=== PATIENT | female | born 1955 | race Caucasian/White ===

== ENCOUNTER 2018-03-26 12:00 | Inpatient (IN) | payer OTHER ==
[~2018-03-26] VITALS: Ht 167.6 cm; Wt 72.1 kg
[2018-03-26 12:05] VITALS: BP 107/76
--- NOTE | 2018-03-26 12:20 | NUR ---
BIBA. PATIENT PRESENTS WITH ALOC REPORTED BY SISTER TO EMS. PATIENT ANSWERING QUESTIONS APPROPRIATLY AT THIS TIME. BILATERAL LOWER EXTREMITIES RED AND SWOLLEN WITH SMALL SKIN TEARS ON THE RIGHT LEG. PATIENT DENIES PAIN AT THIS TIME. SEVERE ABD DISTENTION NOTED REPORTED TO HAVE BEEN GETTING WORSE OVER THE LAST 2 MONTHS. SCLERAL YELLOWING NOTED.
--- NOTE | 2018-03-26 12:28 | NUR ---
DR CASTELLANOS AT BEDSIDE.
[2018-03-26] MEDS ORDERED: GABA-640 PO (12:30)
[2018-03-26] MEDS ORDERED: TRAM50TA1 PO (12:33)
[2018-03-26] MEDS ORDERED: FOLI1TAB89 PO (12:34)
[2018-03-26] MEDS ORDERED: MIRT15TA PO (12:37)
[2018-03-26] MEDS ORDERED: ASPI-1677 PO (12:38)
[2018-03-26] MEDS ORDERED: PROMETHAZINE 25 MG/ML VIAL IM ONE (12:50)
[2018-03-26] MEDS ORDERED: LACTULOSE 20 GM/30 ML UDC PO ONE (12:50)
--- NOTE | 2018-03-26 13:00 | NUR ---
RT AT BEDSIDE
--- NOTE | 2018-03-26 13:09 | NUR ---
TECH AT BEDSIDE PREFORMING EKG
[2018-03-26 13:39] LABS: BASOPHILS % (AUTO) 0.2 % (0.0-2.0); HEMATOCRIT 38.6 % (36-48); HEMOGLOBIN 12.6 g/dL (12.0-16.0); LYMPHOCYTES # (AUTO) 1.6 K/uL (2.5-16.5); LYMPHOCYTES % (AUTO) 6.7 % (20.5-51.1); MEAN CORPUSCULAR HEMOGLOBIN 33 pg (27-31); MEAN CORPUSCULAR HGB CONC 33 g/dL (33-37); MEAN CORPUSCULAR VOLUME 100.4 fL (80-94); MONOCYTES # (AUTO) 0.6 K/uL (0.8-1.0); MONOCYTES % (AUTO) 2.5 % (1.7-9.3); NEUTROPHILS % (AUTO) 90.6 % (42.2-75.2); PLATELET COUNT (AUTO) 302 K/uL (140-450); RED BLOOD CELL COUNT(AUTO) 3.85 MIL/uL (4.20-5.40); RED CELL DISTRIBUTION WIDTH 13.6 % (11.6-13.7); WHITE BLOOD COUNT (AUTO) 23.1 K/uL (4.8-10.8)
[2018-03-26 13:55] LABS: ANION GAP 8.5 (8-16); CARBON DIOXIDE 28.5 mmol/L (21-32); CREATININE 0.9 mg/dL (0.6-1.3)
[2018-03-26 14:01] LABS: ALBUMIN 1.8 g/dL (3.4-5.0); TOTAL BILIRUBIN 1.7 mg/dL (0.0-1.0)
[2018-03-26 14:03] LABS: ACETONE, SERUM NEGATIVE (NEGATIVE)
[2018-03-26 14:09] LABS: PROTHROMBIN TIME 12.2 secs (10.8-13.4)
--- NOTE | 2018-03-26 14:09 | NUR ---
U/S DELAYED DUE TO PATIENT CARE NEEDS.
[2018-03-26 14:12] LABS: AMYLASE 4 U/L (25-115); LIPASE 43 U/L (73-393); MAGNESIUM 1.7 mg/dL (1.8-2.4); URIC ACID 5.5 mg/dL (2.6-7.2)
[2018-03-26] MEDS ORDERED: NACL 0.9% 1,000 ML IV ONE (15:05)
[2018-03-26] MEDS ORDERED: cefTRIAXone 1,000 MG in DEXT 5% MINI-BAG PLUS 50 ML IV ONE (15:05)
[2018-03-26] MEDS ORDERED: LEVOFLOXACIN 500 MG/D5W PREMIX 100 ML IV ONE (15:05)
[2018-03-26] MEDS ORDERED: cefTRIAXone 1,000 MG VIAL ONE (15:14)
--- NOTE | 2018-03-26 16:00 | NUR ---
PT RESTING IN BED, FAMILY AT BEDSIDE. PT STATED NO DISCOMFORT AT HTIS MOMENT.
[2018-03-26] MEDS ORDERED: DOCUSATE SODIUM 100 MG GELCAP PO PRN (16:05)
[2018-03-26] MEDS ORDERED: ACETAMINOPHEN 325 MG TAB PO PRN (16:05)
[2018-03-26] MEDS ORDERED: ONDANSETRON 4 MG/2 ML VIAL IM/IVP PRN (16:05)
--- NOTE | 2018-03-26 17:25 | NUR ---
TRANSFERRED PT TO TELE 105 A, PT AWAKE, ALERT. RA, NO S/S OF RESPIRATORY DISTRESS NOTED. REPORT GIVEN TO IRVIN. FAMILY AND FRIEND WITH PT. PT IN STABLE CONDITION AT THIS MOMENT.
[2018-03-26] MEDS ORDERED: DEXTROSE 50% 50 ML SYR IVP PRN (17:35)
[2018-03-26] MEDS ORDERED: INSULIN LISPRO SLIDING SCALE 100 UNITS/ML VIAL SUBQ PRN (17:35)
[2018-03-26] MEDS ORDERED: SPIRONOLACTONE 25 MG TAB PO SCH (18:15)
[2018-03-26 18:17] LABS: CHOL/HDL RATIO 4.8 (1-4.5); FREE T4 (FREE THYROXINE) 1.17 ng/dL (0.76-1.46); MAGNESIUM 1.7 mg/dL (1.8-2.4); PHOSPHORUS 3.3 mg/dL (2.5-4.9); THYROID STIMULATING HORMONE 3.07 uIU/mL (0.34-3.74)
[2018-03-26] MEDS ORDERED: FUROSEMIDE 40 MG/4 ML VIAL IVP SCH (18:45)
[2018-03-26] MEDS: NACL 0.9% 1,000 ML IV SCH (18:59)
--- NOTE | 2018-03-26 19:30 | NUR ---
RECEIVED REPORT AT BEDSIDE FROM IRVIN KING DAYSHIFT NURSE, PT IN STABLE CONDITION.
[2018-03-26 20:00] VITALS: BP 105/71
--- NOTE | 2018-03-26 20:00 | NUR ---
PT IN LOW BED WITH FALLS PRECAUTIONS AND SEIZURE PRECAUTIONS IN PLACE, FAMILY AT BEDSIDE. V/S FOLLOWS T 99.5 P 106 R 18 B/P 105/74 02 94% WITH R/A. CALL SPRING IN REACH. PT ASSISTED WITH BEDPAN.
[2018-03-26 20:30] LABS: APPEARANCE,URINE CLOUDY (CLEAR); COLOR,URINE AMBER (YELLOW); UGLUCOSE NEGATIVE (NEGATIVE)
[2018-03-26 20:31] LABS: BILIRUBIN,URINE NEGATIVE (NEGATIVE); BLOOD, URINE NEGATIVE (NEGATIVE); LEUKOCYTE ESTERASE ,URINE NEGATIVE (NEGATIVE); NITRITE, URINE NEGATIVE (NEGATIVE)
[2018-03-26 20:32] LABS: BARBITURATE, URINE NEG. ng/ml (NEG <=200); BENZODIAZEPINE, URINE POS. ng/mL (NEG <=200); CANNABINOID, URINE POS. ng/mL (NEG <=50); COCAINE, URINE NEG. ng/mL (NEG <=300); OPIATE, URINE NEG. ng/mL (NEG <=2000); PHENCYCLIDINE SCREEN,URINE NEG. ng/mL (NEG <=25)
[2018-03-26 20:36] LABS: RBC,URINE 0-5 (RARE) /HPF (0-5); WBC,URINE 0-5 (RARE) /HPF (0-5)
[2018-03-26 20:37] LABS: URINE AMORPHOUS URATE 1+ /HPF (None Seen)
[2018-03-26] MEDS: LORazepam 1 MG TAB PO SCH (20:52)
[2018-03-26] MEDS: PIPER/TAZO 3.375GM/D5W PREMIX 50 ML IV SCH (21:00)
[2018-03-26] MEDS: BLOOD GLUCOSE MONITORING 1 DEV DEV FS SCH (21:00)
--- NOTE | 2018-03-26 21:00 | NUR ---
PT IN BED AOX3 SHE HAS HOB UP 35%. PT IS UNABLE TO AMBULATE AND HAS BEEN RECIEVEING ASSISTANCE WITH BEDPAN DUE TO RECEIVING LASIX IN ER PT HAD USED BED BRIONES X2. LUNG SOUNDS CLEAR AND BOWEL SOUNDS HYPOACTIVE. PT ABDOMEN IS FIRM AND DISTENDED. PT C/O 8/10 PAIN IN LEGS DUE TO NEUROPATHY FROM DM. PT GIVEN PRN MORPHINE 2MG IVP/PRN AND ATIVAN 1MG WHICH IS ORDERED AT THIS TIME. FINGERSTICK IS 115 NO COVERAGE NEEDED. PT ALSO RECEIVED ORDERED ZOSYN IVP ABX. BED IN LOW POSITION SIDE RAILS UP X2 AND CALL SPRING IN REACH, WILL MONITOR EFFECT OF PRN PAIN MEDS.
[2018-03-26] MEDS: MORPHINE SULFATE 4 MG/ML SYR IVP PRN (21:02)
[2018-03-26] MEDS ORDERED: PIPERACILLIN/TAZOBACTAM 3.375 GM VIAL IV ONE (21:54)
--- NOTE | 2018-03-27 | NUR ---
PT IN BED ASSISTED WITH BEDPAN URINATED X1 NO BM V/S FOLLOWS T 98.4 P 102 R 18 B/P 103/68 02 93. PT ASSISTED WITH BED BRIONES URINATED X1 BED LOW CALL SPRING IN REACH AND SIDE RAILS UP ALL FALLS AND SEIZURE PRECAUTIONS IN PLACE
--- NOTE | 2018-03-27 02:00 | NUR ---
PT IN BED ASLEEP WITH ALL PRECAUTIONS IN PLACE IV SITE INTACT AND FLUSHED PATENT.
--- NOTE | 2018-03-27 05:00 | NUR ---
T P IN BED F/S IS 99 NO COVERAGE NEEDED. V/S FOLLOWS T98.6 P 107 R 18 R B/P 118/81 02 95 WITH R/A.
[2018-03-27] MEDS ORDERED: PIPERACILLIN/TAZOBACTAM 3.375 GM VIAL IV ONE (05:54)
[2018-03-27] MEDS: PIPER/TAZO 3.375GM/D5W PREMIX 50 ML IV SCH (05:57)
[2018-03-27] MEDS: LORazepam 1 MG TAB PO SCH ×3 (05:58→20:47)
[2018-03-27 06:00] VITALS: BP 103/68
[2018-03-27] MEDS: BLOOD GLUCOSE MONITORING 1 DEV DEV FS SCH ×4 (06:08→20:50)
--- NOTE | 2018-03-27 07:20 | NUR ---
PT REPORT RECEIVED FROM ELECTRIC TRIPPER MACHINE OPERATOR NURSE AT BEDSIDE. PT IS ALERT AND AWAKE, NO S/S OF DISTRESS. PT IS ON ROOM AIR. SKIN IS INTACT. L AC 20 GAUGE IV SITE NOTED. PATENT AND INTACT. ABDOMEN IS ENLARGED DUE TO ASCITES, BLE EDEMATOUS AND WEEPING. PT IS NPO TODAY FOR UPCOMING PARACENTESIS PROCEDURE TODAY. CALL LIGHT WITHIN REACH, BED LOW. WILL CONTINUE TO MONITOR.
--- NOTE | 2018-03-27 07:30 | NUR ---
REPORT GIVEN TO EMANUEL AT AT BEDSIDE FOR CONTINUITY OF CARE, PT IN STABLE CONDITION.
[2018-03-27 07:33] LABS: BASOPHILS % (AUTO) 0.3 % (0.0-2.0); EOSINOPHILS % (AUTO) 0.1 % (0.0-4.0); HEMATOCRIT 36.6 % (36-48); HEMOGLOBIN 11.9 g/dL (12.0-16.0); LYMPHOCYTES # (AUTO) 1.9 K/uL (2.5-16.5); LYMPHOCYTES % (AUTO) 12.2 % (20.5-51.1); MEAN CORPUSCULAR HEMOGLOBIN 33 pg (27-31); MEAN CORPUSCULAR HGB CONC 33 g/dL (33-37); MONOCYTES # (AUTO) 0.3 K/uL (0.8-1.0); MONOCYTES % (AUTO) 2.1 % (1.7-9.3); NEUTROPHILS # (AUTO) 13.6 K/uL (1.8-7.7); NEUTROPHILS % (AUTO) 85.3 % (42.2-75.2); PLATELET COUNT (AUTO) 263 K/uL (140-450); RED BLOOD CELL COUNT(AUTO) 3.66 MIL/uL (4.20-5.40); RED CELL DISTRIBUTION WIDTH 13.9 % (11.6-13.7); WHITE BLOOD COUNT (AUTO) 15.9 K/uL (4.8-10.8)
[2018-03-27 07:57] LABS: MAGNESIUM 1.7 mg/dL (1.8-2.4); PHOSPHORUS 2.9 mg/dL (2.5-4.9)
[2018-03-27 08:00] VITALS: BP 109/69
[2018-03-27] MEDS: MAGNESIUM OXIDE 400 MG TAB PO SCH (09:00)
[2018-03-27] MEDS: MULTIVITAMIN 1 TAB PO SCH (09:01)
[2018-03-27] MEDS: LACTOBACILLUS RHAMNOSUS GG 1 EACH CAP PO SCH (09:01)
[2018-03-27] MEDS: chlordiazePOXIDE 25 MG CAP PO SCH ×3 (09:01→17:35)
[2018-03-27] MEDS: THIAMINE 100 MG TAB PO SCH (09:01)
[2018-03-27] MEDS: FOLIC ACID 1 MG TAB PO SCH (09:01)
[2018-03-27] MEDS: SPIRONOLACTONE 25 MG TAB PO SCH ×2 (09:02→17:35)
--- NOTE | 2018-03-27 09:10 | NUR ---
OBTAINED CONSENT FROM PT FOR PARACENTESIS.
[2018-03-27] MEDS ORDERED: LEVOFLOXACIN 750 MG/D5W PREMIX 150 ML IV SCH (09:30)
[2018-03-27] MEDS: NACL 0.9% 1,000 ML IV SCH (11:25)
[2018-03-27 12:00] VITALS: BP 107/66
[2018-03-27] MEDS ORDERED: FUROSEMIDE 40 MG/4 ML VIAL IVP SCH (13:00)
--- NOTE | 2018-03-27 14:04 | NUR ---
PATIENT HAS BEEN SCREENED AND CATEGORIZED HIGH NUTRITION RISK. PATIENT WILL BE SEEN WITHIN 1-2 DAYS OF ADMISSION. 03/27/18 03/28/18 RAMONE GREGG MBA, RD
[2018-03-27 15:40] LABS: ALBUMIN 1.7 g/dL (3.4-5.0); BILIRUBIN,DIRECT 0.8 mg/dL (0.0-0.3); TOTAL BILIRUBIN 1.4 mg/dL (0.0-1.0)
[2018-03-27] MEDS: HYDROcodone/APAP 7.5/325 MG 1 TAB PO PRN (15:57)
[2018-03-27 16:00] VITALS: BP 100/73
--- NOTE | 2018-03-27 17:10 | NUR ---
LYONS CATHETER INSERTED.
--- NOTE | 2018-03-27 18:00 | NUR ---
PARACENTESIS RESCHEDULED FOR TOMORROW. PT EATING DINNER AT THIS TIME. VISITORS AT BEDSIDE. NO S/S OF DISTRESS NOTED. WILL CONTINUE TO MONITOR.
--- NOTE | 2018-03-27 19:29 | NUR ---
RECEIVED REPORT FROM AM RN IN BED SLEEPING. WOKE UP EASILY. GIRLFRIEND INHERE WATCHING OVER HER. PT. NONE VERBAL AT THIS TIME. DX. OF SEPSIS, PNA. WITH ASCITES AND DUE FOR PARACENTESIS TOMORROW. HX. OF DEMENTIA. NOTED WITH CONFUSION RT PER FRIEND AT BEDSIDE SHE IS ASKING WEIRD QUESTIONS. BED ALARM ON AND CALL LIGHT WITH IN REACH. CARE PLANS FOR THE NIGHT DISCUSSED WITH THEM. NEEDS WILL BE ANTICIPATED AND MET. LYONS CATHETER IN PLACE DRAINING WITH YELLOW URINE. IVF SITE TO LAC#20 INTACT AND PATENT.
--- NOTE | 2018-03-27 19:30 | NUR ---
PT REPORT GIVEN TO CHIEF DRAFTER NURSE. PT IS ENDORSED IN STABLE CONDITION.
[2018-03-27 20:00] VITALS: BP 100/64
[2018-03-27] MEDS: LACTULOSE 20 GM/30 ML UDC PO SCH (20:46)
[2018-03-27] MEDS ORDERED: MIRTAZAPINE 15 MG TAB PO SCH (21:00)
[2018-03-27] MEDS: LORazepam 2 MG/ML VIAL IVP PRN (23:41)
--- NOTE | 2018-03-27 23:46 | NUR ---
PT. WITHOUT FAMILY FRIEND AT THIS TIME. PT. AWAKE AND RESTLESS. PT. HAS ANXIETY AND WANTS TO GET OUT OF BED. EXPLAINED THAT SHE CAN NOT GO RESTROOM TO URINATE RT SHE HAS LYONS CATHETER. SHE IS STRICT I AND O. PT. TRYING TO GET UP AND TRYING TO PULL OUT LYONS CATHETER. EXPLAINED THAT IT IS IN PLACE RT STRICT I AND O.
[2018-03-28 01:07] VITALS: BP 120/88
[2018-03-28] MEDS: MORPHINE SULFATE 4 MG/ML SYR IVP PRN (01:14)
--- NOTE | 2018-03-28 01:18 | NUR ---
PT. STATED THAT SHE IS IN PAIN. MEDICATED REQUESTED. CALLING NAMES AND SHOUTING ON TOP OF HER VOICE. PT. CLOSELY MONITORED RT CONFUSED. BED ALARM ON.
[2018-03-28] MEDS: LORazepam 2 MG/ML VIAL IVP PRN ×3 (04:02→16:36)
--- NOTE | 2018-03-28 04:05 | NUR ---
PT. WOKE UP AGAIN EARLIER . HAD A SHORT SLEEP. PT. WANTING TO JUMP OUT OF BED. VERY CONFUSED. ATIVAN IVP ADMINISTERED RT ANXIETY AND AGITATION.
[2018-03-28] MEDS: LORazepam 1 MG TAB PO SCH (04:10)
[2018-03-28 04:34] VITALS: BP 119/84
[2018-03-28] MEDS: BLOOD GLUCOSE MONITORING 1 DEV DEV FS SCH ×4 (05:53→21:00)
[2018-03-28 06:58] LABS: BASOPHILS # (AUTO) 0.2 K/uL (0.00-0.22); BASOPHILS % (AUTO) 1.9 % (0.0-2.0); EOSINOPHILS % (AUTO) 0.4 % (0.0-4.0); HEMATOCRIT 38.6 % (36-48); HEMOGLOBIN 12.8 g/dL (12.0-16.0); LYMPHOCYTES # (AUTO) 0.9 K/uL (2.5-16.5); LYMPHOCYTES % (AUTO) 11.3 % (20.5-51.1); MEAN CORPUSCULAR HEMOGLOBIN 33 pg (27-31); MEAN CORPUSCULAR HGB CONC 33 g/dL (33-37); MEAN CORPUSCULAR VOLUME 99.9 fL (80-94); MONOCYTES # (AUTO) 0.4 K/uL (0.8-1.0); MONOCYTES % (AUTO) 4.4 % (1.7-9.3); NEUTROPHILS # (AUTO) 6.8 K/uL (1.8-7.7); PLATELET COUNT (AUTO) 278 K/uL (140-450); RED BLOOD CELL COUNT(AUTO) 3.86 MIL/uL (4.20-5.40); RED CELL DISTRIBUTION WIDTH 13.8 % (11.6-13.7); WHITE BLOOD COUNT (AUTO) 8.3 K/uL (4.8-10.8)
[2018-03-28] MEDS: NACL 0.9% 1,000 ML IV SCH (07:00)
[2018-03-28 07:19] LABS: ALBUMIN 1.7 g/dL (3.4-5.0); ANION GAP 8.8 (8-16); CARBON DIOXIDE 28.4 mmol/L (21-32); CREATININE 0.9 mg/dL (0.6-1.3); MAGNESIUM 1.7 mg/dL (1.8-2.4); PHOSPHORUS 2.4 mg/dL (2.5-4.9); POTASSIUM 3.2 mmol/L (3.5-5.1); TOTAL BILIRUBIN 1.1 mg/dL (0.0-1.0)
--- NOTE | 2018-03-28 07:21 | NUR ---
ENDORSED TO THE NEXT RN FOR CONTINUITY OF CARE. PT. STILL AWAKE AT THIS TIME. NEEDS ANTICIPATED AND MET.
--- NOTE | 2018-03-28 07:22 | NUR ---
RECEIVED REPORT FROM TEXTILE COATING MACHINE OPERATOR NURSE. PATIENT LYING DOWN IN BED, NO DISTRESS NOTED. AAOX2, CALM, CONFUSED. LUNGS CTA ON ALL LOBES. ABDOMEN HAS LARGE ASCITES NOTED, SCHEDULED TO HAVE PARACENTESIS LATER TODAY. IV SITE INTACT, PATENT, AND INFUSING IVF PER MD ORDERS. HAS BLE PITTING EDEMA NOTED. RIGHT LE HAS MULTIPLE EXORIATIONS NOTED. WOUND CARE NURSE EVAL LATER TODAY. REVIEWED PLAN OF CARE WITH PATIENT. PATIENT VERBALIZED UNDERSTANDING. SAFETY MEASURES IN PLACE, CALL LIGHT WITHIN REACH. WILL CONTINUE TO MONITOR.
[2018-03-28 08:00] VITALS: BP 122/91
[2018-03-28] MEDS: THIAMINE 100 MG TAB PO SCH (09:00)
[2018-03-28] MEDS: chlordiazePOXIDE 25 MG CAP PO SCH ×3 (09:00→16:36)
[2018-03-28] MEDS: LACTULOSE 20 GM/30 ML UDC PO SCH ×2 (09:00→22:06)
[2018-03-28] MEDS: SPIRONOLACTONE 25 MG TAB PO SCH (09:00)
[2018-03-28] MEDS: LACTOBACILLUS RHAMNOSUS GG 1 EACH CAP PO SCH (09:00)
[2018-03-28] MEDS: MULTIVITAMIN 1 TAB PO SCH (09:00)
[2018-03-28] MEDS: FOLIC ACID 1 MG TAB PO SCH (09:00)
[2018-03-28] MEDS: FUROSEMIDE 40 MG/4 ML VIAL IVP SCH (09:00)
[2018-03-28] MEDS: MAGNESIUM OXIDE 400 MG TAB PO SCH (09:31)
--- NOTE | 2018-03-28 09:35 | NUR ---
PATIENT LYING DOWN IN BED, SISTER AT BEDSIDE. NO DISTRESS NOTED. CONTINUES TO BE CONFUSED. MAG OX AND IV ANTIBIOTICS DUE GIVEN. OTHER SCHEDULED MEDICATIONS NOT GIVEN PATIENT IS NPO. SAFETY MEASURES IN PLACE, WILL CONTINUE TO MONITOR.
[2018-03-28] MEDS ORDERED: SPIRONOLACTONE 50 MG TAB PO SCH (11:00)
--- NOTE | 2018-03-28 11:08 | NUR ---
WOUND CARE CONSULT PER DR. MALDONADO REQUEST FOR RLE WEEPING LEG. SISTER ADEBAYO AT BED SIDE, INFORMATION PROVIDED THAT PT. HAS DOG BITES TO PT. BLE ABOUT A WEEK AGO. SKIN ASSESSMENT DONE. RLE WEEPING SKIN WITH MULTIPLE OPEN LESIONS AND LARGEST TO LEFT LALA 2.5X0.5X0.3CM, WOUND BED YELLOW, DRY, ROSHNI-WOUND SKIN INTAKE BUT MOIST, NO ODOR, NO ERYTHEMA. RLE SKIN DRY, RIGHT GREAT TOE 0.5X0.5 BLACK ESCHAR AND MULTIPLE DRY SCABS TO 2ND, 3RD AND 5TH TOES. RECOMMENDATIONS: -CLEANSE RLE WITH NS, PAT DRY APPLY XEROFORM DRESSING AND WRAP WITH KERLIX ROLLS Q72 HOURS AND PRN IF SOILING -PAINT LEFT TOES WITH BETADINE SOLUTION QD AND LEAVE IT OPEN TO AIR DRY -TURN AND REPOSITION U2HAQIS AND KEEP BILATERAL HEELS ELEVATED -PLEASE FOLLOW UP PODIATRY SERVICE OUT PATIENT. -HOME HEALTH CARE FOR WOUND CARE Q72 HOURS ABOVE RECOMMENDATIONS DISCUSSED WITH PRIMARY RN.
[2018-03-28 12:00] VITALS: BP 123/89
[2018-03-28] MEDS: NACL 0.9% IRR 250 ML BOTTLE IR SCH (12:35)
[2018-03-28] MEDS: HYDROcodone/APAP 7.5/325 MG 1 TAB PO PRN (12:35)
--- NOTE | 2018-03-28 12:39 | NUR ---
PATIENT SITTING IN BED WITH LUNCH TRAY IN FRONT. NO DISTRESS NOTED. COMPLAINS OF PAIN, NORCO GIVEN PER MD ORDERS. SAFETY MEASURES IN PLACE, CALL LIGHT WITHIN REACH. WILL CONTINUE TO MONITOR.
--- NOTE | 2018-03-28 13:20 | NUR ---
PATIENT FEELING ANXIOUS, TRYING TO GET OUT OF BED AND PULLING ON LYONS CATHETER. ATIVAN GIVEN PER MD ORDERS. WILL CONTINUE TO MONITOR .
[2018-03-28] MEDS ORDERED: MAG SULF 2000 MG/WATER PREMIX 50 ML IV SCH (14:30)
--- NOTE | 2018-03-28 15:16 | NUR ---
RECEIVED ORDER FOR SNF FOR PT AND WOUND CARE. CALLED JERROD FROM [facility] AND FAXED ORDER AND H&P. NO PT EVAL DONE YET.
--- NOTE | 2018-03-28 15:49 | NUR ---
03/28/18 RD INITIAL ASSESSMENT COMPLETED PLEASE REFER TO NUTRITION ASSESSMENT UNDER CARE ACTIVITY FOR ESTIMATED NUTRITIONAL NEEDS. 1. RECOMMEND REGULAR DIET TOLERATED 2. DIETITIAN RECOMMENDS ENSURE MAX 3X/DAY 3. SUPPLEMENT WITH MULTI-VITAMIN 1X/DAY 3. RD TO FOLLOW-UP 3-5 DAYS, MODERATE RISK EMILIA FRANCO, ARIEL
[2018-03-28 16:00] VITALS: BP 103/71
--- NOTE | 2018-03-28 16:43 | NUR ---
PATIENT LYING IN BED TRYING TO PULL ON LYONS CATHETER, ATIVAN GIVEN PER MD ORDERS. OTHER SCHEDULED MEDICATIONS DUE GIVEN. SAFETY MEASURES IN PLACE, CALL LIGHT WITHIN REACH. WILL CONTINUE TO MONITOR.
[2018-03-28 17:10] LABS: GLUCOSE,BODY FLUID 93 mg/dL; LDH,BODY FLUID 23 U/L
[2018-03-28 17:25] LABS: APPEARANCE,SPUN,BODY FLUID CLEAR (CLEAR); APPEARANCE,UNSPUN,BODY FLUID CLEAR (CLEAR); COLOR,BODY FLUID LT YELLOW (LT YELLOW); RBC, BODY FLUID 4 /cu. mm.; SPECIMENTYPE,BODY FLUID ASCITES; TOTAL VOLUME,BODY FLUID 5650 mL; WBC, BODY FLUID 2 /cu. mm.
--- NOTE | 2018-03-28 19:30 | NUR ---
GAVE REPORT TO TRANSLITERATOR NURSE FOR CONTINUITY OF CARE. PATIENT IN STABLE CONDITION.
--- NOTE | 2018-03-28 19:33 | NUR ---
RECEIVED PT FROM DANIEL KING PT AOX1 ON TELEMETRY SR RT LE WITH MULTIPLES LACERATIONS , PT WITHASCITIS,HX CIRRHOSIS HL ON LEFT HAND PATENT FOLEYCATH DRAINING WELL YELLOW URINE INITIAL ASSESSMENT DONE
[2018-03-28 20:00] VITALS: BP 95/67
--- NOTE | 2018-03-28 21:30 | NUR ---
BLOOD SUGAR TEST 109 PT COOPERATIVE TO FOLLOW DR ORDERS REPOSITIONED Q2H ON TELMETRY SR
[2018-03-29] VITALS: BP 108/76
--- NOTE | 2018-03-29 01:00 | NUR ---
PT SLEEPING WELLL NOT STRESS NOTED , REPOSITIONED Q2H ON TELE SR LYONS CATH DRAINING WELL YELLOW URINE.
[2018-03-29 04:00] VITALS: BP 120/71
--- NOTE | 2018-03-29 04:00 | NUR ---
SPONGE BATH GIVEN LINEN CHANGED ON TELE SR ON BED ALARM NOT DISTRESS NOTED LYONS CATH DRAINING WELL YELLOW URINE
--- NOTE | 2018-03-29 06:30 | NUR ---
BLOOD SUGAR TEST 102
--- NOTE | 2018-03-29 06:33 | NUR ---
PT IS TAKEN TO CT ABD PELVIS WITH CONTRAST
[2018-03-29] MEDS: BLOOD GLUCOSE MONITORING 1 DEV DEV FS SCH ×4 (06:55→20:42)
[2018-03-29 07:07] LABS: BASOPHILS % (AUTO) 0.4 % (0.0-2.0); EOSINOPHILS # (AUTO) 0.1 K/uL (0-0.4); EOSINOPHILS % (AUTO) 0.8 % (0.0-4.0); HEMATOCRIT 35.1 % (36-48); HEMOGLOBIN 11.8 g/dL (12.0-16.0); LYMPHOCYTES # (AUTO) 1.3 K/uL (2.5-16.5); LYMPHOCYTES % (AUTO) 18.1 % (20.5-51.1); MEAN CORPUSCULAR HEMOGLOBIN 33 pg (27-31); MEAN CORPUSCULAR HGB CONC 34 g/dL (33-37); MEAN CORPUSCULAR VOLUME 98.9 fL (80-94); MONOCYTES # (AUTO) 0.5 K/uL (0.8-1.0); MONOCYTES % (AUTO) 6.8 % (1.7-9.3); NEUTROPHILS # (AUTO) 5.2 K/uL (1.8-7.7); NEUTROPHILS % (AUTO) 73.9 % (42.2-75.2); PLATELET COUNT (AUTO) 273 K/uL (140-450); RED BLOOD CELL COUNT(AUTO) 3.55 MIL/uL (4.20-5.40); RED CELL DISTRIBUTION WIDTH 13.5 % (11.6-13.7)
--- NOTE | 2018-03-29 07:15 | NUR ---
RECEIVED REPORT FROM CARVER AND CHECKERER SPECIALS NURSE. PATIENT TAKEN TO CT ABD/PELVIS BY RADIOLOGIST. WILL CONTINUE TO MONITOR WHEN PATIENT RETURNS FROM CT.
[2018-03-29 07:29] LABS: ANION GAP 7.9 (8-16); CARBON DIOXIDE 28.5 mmol/L (21-32); CREATININE 0.7 mg/dL (0.6-1.3); POTASSIUM 3.4 mmol/L (3.5-5.1)
[2018-03-29 08:00] VITALS: BP 121/77
--- NOTE | 2018-03-29 08:00 | NUR ---
PATIENT BACK FROM CT. NO DISTRESS NOTED. DENIES ANY PAIN. AAOX2, CALM, COOPERATIVE, CONFUSED. LUNGS CTA ON ALL LOBES. B/L LE PITTING EDEMA NOTED. RIGHT LE EXOCORIATION NOTED WITH DRESSING DRY AND INTACT. IV SITE INTACT. PATENT, AND INFUSING IVF PER MD ORDERS. ABDOMEN HAS ASCITES NOTED. REVIEWED PLAN OF CARE WITH PATIENT. PATIENT VERBALIZED UNDERSTANDING. REINFORCEMENT NEEDED. WILL CONTINUE TO MONITOR.
[2018-03-29] MEDS: FUROSEMIDE 40 MG/4 ML VIAL IVP SCH (08:45)
[2018-03-29] MEDS: LACTOBACILLUS RHAMNOSUS GG 1 EACH CAP PO SCH (08:46)
[2018-03-29] MEDS: LORazepam 2 MG/ML VIAL IVP PRN ×2 (08:46→20:36)
[2018-03-29] MEDS: SPIRONOLACTONE 50 MG TAB PO SCH (08:46)
[2018-03-29] MEDS: MAGNESIUM OXIDE 400 MG TAB PO SCH (08:46)
[2018-03-29] MEDS: THIAMINE 100 MG TAB PO SCH (08:46)
[2018-03-29] MEDS: LACTULOSE 20 GM/30 ML UDC PO SCH ×3 (08:46→17:00)
[2018-03-29] MEDS: MULTIVITAMIN 1 TAB PO SCH (08:46)
[2018-03-29] MEDS: chlordiazePOXIDE 25 MG CAP PO SCH ×3 (08:46→16:34)
[2018-03-29] MEDS: FOLIC ACID 1 MG TAB PO SCH (08:46)
--- NOTE | 2018-03-29 08:59 | NUR ---
PATIENT LYING DOWN IN BED CONFUSED AND ANXIOUS, TRYING TO PULL ON LYONS CATH. NO DISTRESS NOTED. ATIVAN GIVEN PER MD ORDERS. SCHEDULED MEDICATIONS DUE GIVEN. SAFETY MEASURES IN PLACE, CALL LIGHT WITHIN REACH. WILL CONTINUE TO MONITOR.
[2018-03-29 12:00] VITALS: BP 99/78
--- NOTE | 2018-03-29 12:21 | NUR ---
SPOKE WITH JERROD AT [facility]. FAXED ORDER FOR SNF INCLUDING THE PHYSICAL THERAPY NOTES.
[2018-03-29] MEDS: NACL 0.9% IRR 250 ML BOTTLE IR SCH (12:37)
[2018-03-29] MEDS: WOUND CARE PREPARATION 178 ML SPR TP SCH (12:37)
--- NOTE | 2018-03-29 12:40 | NUR ---
PATIENT LYING DOWN IN BED COMFORTABLY. NO DISTRESS NOTED. DENIES ANY PAIN. SCHEDULED MEDICATIONS DUE GIVEN. LEFT TOES CLEANSED WITH NS AND PAINTED WITH BETADINE PER ORDERS. RIGHT LE WOUNDS NOT CHANGED DUE TO Q72 PER MD ORDERS AND WOUND DRESSING WAS CHANGED YESTERDAY BY WOUND NURSE. WILL CONTINUE TO MONITOR.
--- NOTE | 2018-03-29 15:57 | NUR ---
RECEIVED A CALL FROM JERROD FROM [facility]. SHE SAID AT PRESENT HER HEADLINE WRITER IS NOT AUTHORIZING SNF FOR P.T. THE DIRECTOR WANTS TO SEE WHAT SHE DOES WITH P.T. TOMORROW. I INFORMED DR. GREER.
[2018-03-29 16:00] VITALS: BP 101/73
--- NOTE | 2018-03-29 16:38 | NUR ---
PATIENT SITTING IN BED TALKING WITH FRIENDS AT BEDSIDE. NO DISTRESS NOTED. DENIES ANY PAIN. SCHEDULED MEDICATIONS DUE GIVEN. SAFETY MEASURES IN PLACE, CALL LIGHT WITHIN REACH. WILL CONTINUE TO MONITOR.
--- NOTE | 2018-03-29 17:36 | NUR ---
LACTULOSE AT 1700 NOT GIVEN BECAUSE A DOSE WAS GIVEN AT 1500 PER MD ORDERS. WILL CONTINUE TO MONITOR.
--- NOTE | 2018-03-29 19:35 | NUR ---
GAVE REPORT TO TRIAL MGR NURSE FOR CONTINUITY OF CARE. PATIENT IN STABLE CONDITION.
--- NOTE | 2018-03-29 19:36 | NUR ---
RECEIVED PT FROM DANIEL KING PT IS AAOX1 ON BED REST HL ON LEFT ARM ON TELE ST LYONS CATH DRAINING WELL YELLOW URINE, ASCITES CALL LIGHT WITHIN REACH INITIAL ASSESSMENT DONE
[2018-03-29 20:00] VITALS: BP 104/73
[2018-03-29] MEDS ORDERED: ECOTRIN 81 MG TABEC PO SCH (21:00)
[2018-03-29] MEDS ORDERED: MIRTAZAPINE 15 MG TAB PO SCH (21:00)
[2018-03-30] VITALS: BP 103/68
--- NOTE | 2018-03-30 | NUR ---
PT REPOSITIONED NOT DISTRESS NOTED ON TELMETRY ST
[2018-03-30 04:00] VITALS: BP 102/75
--- NOTE | 2018-03-30 04:00 | NUR ---
SPONGE BATH GIVEN LINEN CHANGED A BIG BM ON TELE ST
--- NOTE | 2018-03-30 05:49 | NUR ---
PT PULL OUT LYONS CATH DR SAENZ WAS NOTIFY
[2018-03-30 06:57] LABS: BASOPHILS # (AUTO) 0.2 K/uL (0.00-0.22); BASOPHILS % (AUTO) 2.6 % (0.0-2.0); EOSINOPHILS # (AUTO) 0.1 K/uL (0-0.4); EOSINOPHILS % (AUTO) 1.1 % (0.0-4.0); HEMATOCRIT 35.7 % (36-48); HEMOGLOBIN 11.9 g/dL (12.0-16.0); LYMPHOCYTES % (AUTO) 30.4 % (20.5-51.1); MEAN CORPUSCULAR HEMOGLOBIN 33 pg (27-31); MEAN CORPUSCULAR HGB CONC 33 g/dL (33-37); MEAN CORPUSCULAR VOLUME 99.3 fL (80-94); MONOCYTES # (AUTO) 0.4 K/uL (0.8-1.0); MONOCYTES % (AUTO) 5.8 % (1.7-9.3); NEUTROPHILS % (AUTO) 60.1 % (42.2-75.2); PLATELET COUNT (AUTO) 274 K/uL (140-450); RED CELL DISTRIBUTION WIDTH 13.7 % (11.6-13.7); WHITE BLOOD COUNT (AUTO) 6.6 K/uL (4.8-10.8)
[2018-03-30 06:58] LABS: ANION GAP 7.5 (8-16); CARBON DIOXIDE 29.8 mmol/L (21-32); CREATININE 0.8 mg/dL (0.6-1.3); POTASSIUM 3.3 mmol/L (3.5-5.1)
[2018-03-30] MEDS ORDERED: traMADol 50 MG TAB PO PRN (07:00)
[2018-03-30] MEDS: BLOOD GLUCOSE MONITORING 1 DEV DEV FS SCH ×4 (07:06→21:00)
--- NOTE | 2018-03-30 07:06 | NUR ---
BLOOD SUGAR TEST 114 NOT COVERAGE
[2018-03-30] MEDS ORDERED: MIRT15TA PO (07:27)
--- NOTE | 2018-03-30 07:30 | NUR ---
RECEIVED PATIENT FROM ESTABLISHMENT GUIDE BY BEDSIDE. PATIENT IS AOX2. PATIENT IS CONFUSED AND KEEPS ASKING TO GO HOME. PATIENT IS ON ROOM AIR; PATIENT IS CALM AND HAS NO COMPLAINT OF DISTRESS OR PAIN AT THIS TIME. PATIENT'S BED IS AT THE LOWEST POSITION WITH THE CALL LIGHT WITHIN REACH.
[2018-03-30 08:00] VITALS: BP 133/82
[2018-03-30] MEDS ORDERED: FURO-570 PO ×2 (08:00→11:08)
[2018-03-30] MEDS ORDERED: SPIR50TA PO (08:01)
--- NOTE | 2018-03-30 08:18 | NUR ---
PATIENT GOT A SKIN TEAR WHEN SHE STUCK HER FINGER BETWEEN THE LEFT BED RAIL AND THE FOOD TRAY. SHE DENIES ANY PAIN. PUT BANDAID ON LEFT RING FINGER
[2018-03-30] MEDS ORDERED: ECOTRIN 81 MG TABEC PO SCH (09:00)
[2018-03-30] MEDS ORDERED: NON-FORMULARY ITEM (Folic Acid 1 MG) PO SCH (09:00)
[2018-03-30] MEDS: ECOTRIN 81 MG TABEC PO SCH (09:00)
[2018-03-30] MEDS ORDERED: LACT10CA1 PO (09:11)
[2018-03-30] MEDS ORDERED: LEVO750T2 PO (09:12)
[2018-03-30] MEDS ORDERED: POTA25TE38 PO ×2 (09:22→10:59)
--- NOTE | 2018-03-30 10:05 | NUR ---
DR. ELISE IS BY THE PATIENT'S BEDSIDE. PATIENT'S SISTER ADEBAYO PLUNKETT IS ALSO PRESENT.
[2018-03-30] MEDS: GABAPENTIN 100 MG CAP PO SCH ×3 (10:06→17:53)
--- NOTE | 2018-03-30 10:12 | NUR ---
SCHEDULED ASPIRIN 81MG HOLD PER DR. ELISE DUE TO BLEEDING.
[2018-03-30] MEDS: FUROSEMIDE 40 MG/4 ML VIAL IVP SCH (10:15)
[2018-03-30] MEDS: FOLIC ACID 1 MG TAB PO SCH (10:16)
[2018-03-30] MEDS: SPIRONOLACTONE 50 MG TAB PO SCH (10:16)
[2018-03-30] MEDS: MAGNESIUM OXIDE 400 MG TAB PO SCH (10:16)
[2018-03-30] MEDS: MULTIVITAMIN 1 TAB PO SCH (10:16)
[2018-03-30] MEDS: LACTOBACILLUS RHAMNOSUS GG 1 EACH CAP PO SCH (10:16)
[2018-03-30] MEDS: LACTULOSE 20 GM/30 ML UDC PO SCH ×3 (10:17→17:53)
[2018-03-30] MEDS: THIAMINE 100 MG TAB PO SCH (10:17)
[2018-03-30] MEDS: chlordiazePOXIDE 25 MG CAP PO SCH ×3 (10:17→17:53)
--- NOTE | 2018-03-30 10:34 | NUR ---
ARMANI NOTE RECEIVED ORDER FOR HOME HEALTH. FAXED ORDER FOR HOME HEALTH TO [facility] [phone]. PER [facility] ARMANI ELDER, HER COORDINATOR DERIK AARON# [phone] WILL ARRANGE WHICH HOME HEALTH AGENCY IS GOING TO SEE PATIENT AND WILL CALL THE HOSPITAL ONCE IT HAS BEEN ARRANGED.
[2018-03-30 12:00] VITALS: BP 115/79
[2018-03-30 12:48] LABS: PROTHROMBIN TIME 11.2 secs (10.8-13.4)
--- NOTE | 2018-03-30 12:58 | NUR ---
CM NOTE PER [facility] COORDINATOR DERIK # [phone], PATIENT HAS BEEN ARRANGED WITH [facility]# [phone]. SPOKE WITH PATIENT'S SISTER ADEBAYO CHILD WHO STATED THAT HER SISTER LIVES ALONE WITH A HOUSE HELPER WHO COMES THREE TIMES A WEEK TO HELP CLEAN THE HOUSE AND TAKE CARE OF THE PETS. PER ADEBAYO, SHE IS FROM [place] AND AND THAT SHE CAN'T TAKE CARE OF HER SISTER. SHE EXPRESSED HER CONCERN THAT IT MIGHT NOT BE SAFE FOR HER SISTER TO GO BACK TO HER HOME. SHE ALSO STATED THAT SHE HAS POWER OF BUCK SWAMPER AND SHE HAS GIVEN THE NURSE A COPY TO BE PLACED IN PATIENT'S CHART. ADEBAYO REQUESTED TO LOOK FOR AN ASSISTED LIVING FACILITY FOR THE PATIENT AND STATED THAT THE PATIENT HAS MONEY TO PAY FOR IT. CM DIRECTOR LIZZY INSTRUCTED ME TO REACH OUT TO [facility], A FREE PLACEMENT AND REFERRAL SERVICE FOR [facility] WHO ASSISTS WITH PERSONAL CARE PLANNING FOR SENIORS. ATTEMPTED TO CALL [facility] # [phone] AND LEFT VM. NO CALL BACK AT THIS TIME. DR. GREER AND CARLOS RN AWARE.
[2018-03-30] MEDS: NACL 0.9% IRR 250 ML BOTTLE IR SCH (13:00)
[2018-03-30] MEDS: WOUND CARE PREPARATION 178 ML SPR TP SCH (13:00)
--- NOTE | 2018-03-30 13:41 | NUR ---
CM NOTE RECEIVED CALL FROM EDWARDO OF [facility] # [phone] WHO REQUESTED PATIENT'S FACESHEET, H&P, MEDICATION LIST BE FAXED TO [facility] [phone]. FAXED INFORMATION. PER EDWARDO, SHE WILL CALL PATIENT'S SISTER ADEBAYO TODAY AND HAVE SOMEONE COME TO THE HOSPITAL TO SEE PATIENT. DR. GREER AND CARLOS KING AWARE.
--- NOTE | 2018-03-30 15:13 | NUR ---
CM NOTE RECEIVED CALL FROM EDWARDO OF [facility] WHO STATED THAT SHE HAD SPOKEN WITH PATIENT'S SISTER. SHE ALSO STATED THAT SHE HAS SPOKEN WITH PATIENT'S GROUND SCHOOL INSTRUCTOR AND DUCK BILL OPERATOR WHO SAID THAT THE POWER OF SYSTEM DEVELOPMENT MANAGER ONLY GETS ACTIVATED WHEN [address] GREER MADE AWARE. PER DR. GREER, SHE HAS SPOKEN WITH PATIENT AND THE PATIENT SAID SHE WANTS TO GO TO HER HOME AND NOT TO AN ASSISTED LIVING FACILITY. DR. GREER SAID SHE WILL DISCHARGE PATIENT HOME WITH HOME HEALTH. SPOKE WITH KORI OF [facility] TO INFORM HER THAT PATIENT IS BEING DISCHARGED TODAY. SHE SAID THAT THEY HAVE A NURSE SCHEDULED TO SEE PATIENT ONCE DISCHARGED. CHARGE NURSE CARLOS GARDNER RN AND PATIENT'S SISTER ADEBAYO PLUNKETT MADE AWARE.
[2018-03-30 15:19] LABS: FOLIC ACID 8.5 ng/mL (>3.0)
[2018-03-30 16:00] VITALS: BP 106/79
[2018-03-30] MEDS ORDERED: ASPI-1677 PO (16:09)
--- NOTE | 2018-03-30 17:45 | NUR ---
SPOKE TO DR CONTRERAS AND INFORMED HER THAT PATIENT IS UNABLE TO GET TRANSPORT AND NEEDS TOTAL ASSISTANCE TO GET INSIDE HER HOUSE BUT IS UNABLE TO GET SOMEONE TO HELP HER. PER , OK TO PUT DISCHARGE ON HOLD
[2018-03-30] MEDS: LORazepam 0.5 MG TAB PO PRN (18:15)
--- NOTE | 2018-03-30 19:39 | NUR ---
ENDORSED PATIENT TO THE IRONWORKER APPRENTICE RN BY HER BEDSIDE. PATIENT IS IN STABLE CONDITION.
--- NOTE | 2018-03-30 19:40 | NUR ---
RECEIVED PATIENT FROM AM SHIFT BY BEDSIDE. PATIENT IS SLEEPING AT THIS TIME GIVEN BY PREVIOUS SHIFT ANTIANXIETY MEDS. NO EPISODES OF AGITATION AT THIS TIME. PATIENT IS ON ROOM AIR; PATIENT'S BED IS AT THE LOWEST POSITION WITH THE CALL LIGHT WITHIN REACH. WILL CONTINUE TO MONITOR
--- NOTE | 2018-03-30 20:00 | NUR ---
PT SLEEPING, CALM AT THIS TIME. NO PAIN AND DISCOMFORT AT THIS TIME. WILL CONTINUE TO MONITOR
[2018-03-30] MEDS ORDERED: MIRTAZAPINE 15 MG TAB PO SCH (21:00)
--- NOTE | 2018-03-30 21:00 | NUR ---
CALLED ABOUT D/C ORDER RE: HOLD ON 03/30/18. PER WILL DISCHARGE NICKY 03/31/18 SOON ABLE TO LOOK FOR PLACEMENT.
[2018-03-31] MEDS: LORazepam 0.5 MG TAB PO PRN (02:13)
--- NOTE | 2018-03-31 02:15 | NUR ---
PT AWAKE,ALERT CONFUSED AND ABLE TO DEFECATE 2X. STOOL WATERY, BROWNISH & MODERATE AMOUNT.PT HAD POST ANTIBIOTIC TREATMENT.
[2018-03-31 04:00] VITALS: BP 116/78
--- NOTE | 2018-03-31 07:01 | NUR ---
PT WAS SEEN BY INFORMED HER TO BE DISCHARGE TODAY. AND WILL ARRANGE FOR TRANSPORT HOME
--- NOTE | 2018-03-31 07:20 | NUR ---
ENDORSED TO AM SHIFT NURSE. PT IN STABLE CONDITION
--- NOTE | 2018-03-31 07:21 | NUR ---
RECEIVED BEDSIDE REPORT FROM PM SHIFT NURSE NOEMI. PT IN BED, VERBALLY RESPONSIVE, NO C/O PAIN OR DISCOMFORT. CALL LIGHT WITHIN REACH.
[2018-03-31] MEDS: BLOOD GLUCOSE MONITORING 1 DEV DEV FS SCH ×3 (07:47→16:38)
[2018-03-31 08:00] VITALS: BP 109/79
[2018-03-31 08:14] LABS: HEPATITIS A ANTIBODY IGM Negative (Negative); HEPATITIS B CORE AB TOTAL Negative (Negative); HEPATITIS B SURFACE ANTIBODY Non Reactive (.); HEPATITIS B SURFACE ANTIGEN Negative (Negative)
[2018-03-31] MEDS: FUROSEMIDE 40 MG/4 ML VIAL IVP SCH (08:41)
[2018-03-31] MEDS: GABAPENTIN 100 MG CAP PO SCH ×2 (08:41→15:19)
[2018-03-31] MEDS: THIAMINE 100 MG TAB PO SCH (08:42)
[2018-03-31] MEDS: MAGNESIUM OXIDE 400 MG TAB PO SCH (08:42)
[2018-03-31] MEDS: chlordiazePOXIDE 25 MG CAP PO SCH ×2 (08:42→15:19)
[2018-03-31] MEDS: FOLIC ACID 1 MG TAB PO SCH (08:42)
[2018-03-31] MEDS: ECOTRIN 81 MG TABEC PO SCH (08:42)
[2018-03-31] MEDS: SPIRONOLACTONE 50 MG TAB PO SCH (08:42)
[2018-03-31] MEDS: LACTOBACILLUS RHAMNOSUS GG 1 EACH CAP PO SCH (08:43)
[2018-03-31] MEDS: LACTULOSE 20 GM/30 ML UDC PO SCH ×2 (08:43→13:00)
[2018-03-31] MEDS: MULTIVITAMIN 1 TAB PO SCH (08:43)
[2018-03-31] MEDS ORDERED: LEVOFLOXACIN 750 MG TAB PO SCH (09:00)
--- NOTE | 2018-03-31 09:00 | NUR ---
PT IN BED AWAKE, DENIES ANY PAIN OR DISCOMFORT. PERICARE PROVIDED. PT REPOSITIONED. TIFFANI CARE WELL. CALL LIGHT WITHIN REACH.
--- NOTE | 2018-03-31 09:03 | NUR ---
LATE ENTRY FOR 03/30/18 1530 SPOKE WITH PATIENTS SISTER ADEBAYO REGARDING HOME DISCHARGE WITH HH. PER ADEBAYO SHE IS UNABLE TO ASSIST PATIENT WITH HER CARE AND WILL NOT PICK PT UP SHE DOESN'T THINK PATIENT SHOULD BE LIVING ALONE. STATED THAT SHE HAS HAD A STRAINED RELATIONSHIP WITH HER SISTER DUE TO PATIENTS ALCOHOL ABUSE AND THAT PT BECOMES VERBALLY ABUSE. STATED THAT PT DOES HAVE AN BOWLING BALL FINISHER HER FINANCIER AND THAT PT REFUSES TO GO TO SNF OR ASSISTED LIVING AND AT THIS TIME ONLY PATIENT CAN ACCESS THE FUNDS AND THAT ONLY WHEN PATIENT IS DEEMED INCOMPETENT CAN SOMEONE OTHER THAN PATIENT UTILIZE THE FUNDS FOR HER CARE. I INFORMED ADEBAYO THAT I WOULD SPEAK TO THE PATIENT ABOUT THE SITUATION. 1615 MET WITH PATIENT AT BEDSIDE AND DISCUSSED WITH PATIENT THAT DUE TO HER DECREASED LEVEL OF FUNCTION IT WOULD BE ADVISABLE TO CONSIDER AN ASSISTED LIVING FACILITY. PT ADAMANTLY REFUSED AND STATED THAT SHE PLANS TO GO HOME. ASKED PT WHAT HER PLAN IS AND SHE STATED THAT SHE WOULD TAKE A TAXI. DISCUSSED WITH PT THAT SINCE SHE NEEDS TO UTILIZE A WALKER HOW SHE WOULD GET INTO HER HOME SAFELY AND SHE STATED "I'LL ASK THE HYDROGRAPHIC SURVEYOR TO HELP ME UP THE DRIVEWAY". ASKED HER WHAT HER PLAN IS IF THE HYDROGRAPHIC SURVEYOR WILL NOT ASSIST HER AND SHE SAID "I'LL GET ONE OF MY NEIGHBORS TO HELP". INFORMED HER THAT THERE ARE OTHER FORMS OF TRANSPORT AND PT SAID SHE WOULD BE WILLING TO UTILIZE A W/C TRANSPORT VAN. PROVIDED HER WITH INFORMATION ON [facility] AND PT DID SPEAK WITH DISPATCH BY PHONE AND WAS INFORMED THAT SHE WOULD NEED TO PAY UPFRONT. PT BECAME UPSET AND INSISTED THAT THE HYDROGRAPHIC SURVEYOR COULD STOP BY AN DANA AND SHE WOULD OBTAIN FAM BUT [facility] WOULD NOT ACCOMMODATE PATIENTS REQUEST. ADVISED PATIENT THAT IT WOULD BE SAFER TO WAIT UNTIL TOMORROW TO SET UP AN ARRANGEMENT WITH HER FRIEND (PER PT SHE HAS LEFT A MESSAGE WITH HER FRIEND THAT SHE NEEDS TRANSPORT) BUT PT WAS INSISTING ON LEAVING TONIGHT. ASSIGNED NURSE CARLOS AND CHARGE NURSE JJ AWARE OF SITUATION AND THAT PT SAID SHE IS WAITING FOR HER FRIEND TO CALL BACK.
--- NOTE | 2018-03-31 11:00 | NUR ---
SPOKE WITH DIONE FROM [place], ETA FOR [facility] TRANSPORT IS AT 2PM TODAY. MIRIAM NURSE ASSIGNED MADE AWARE.
--- NOTE | 2018-03-31 11:15 | NUR ---
WRITTEN & VERBAL DISCHARGE INSTRUCTIONS PROVIDED TO PT. PT VERBALIZED UNDERSTANDING. PT AWARE OF PENDING TRANSPORT FOR VALIDATION CONSULTANT. CALL LIGHT WITHIN REACH.
--- NOTE | 2018-03-31 11:34 | NUR ---
1100 MET WITH PATIENT AT BEDSIDE AND ASKED IF SHE HAD RECONSIDERED ABOUT ASSISTED LIVING AND PATIENT SAID SHE IS GOING TO GO TO HER OWN HOME. STATED THAT SHE HAD HER NEIGHBOR BRING HER PURSE AND SHE NOW HAS MONEY TO PAY FOR TRANSPORT HOME. STATED "I HAVE MY WALKER AND W/C AND MY FRIEND AND MY NEIGHBORS HELP ME, I NEED TO GET HOME TO MY DOGS MY NEIGHBOR HAS BEEN WATCHING THEM FOR ME AND I DO JUST FINE AT HOME WITH THEIR HELP". PT REQUESTED THAT TRANSPORT COMPANY BE CALLED AND SHE WILL MAKE ARRANGEMENTS WITH THEM FOR HER TRANSPORT HOME.
[2018-03-31] MEDS: NACL 0.9% IRR 250 ML BOTTLE IR SCH (13:00)
[2018-03-31] MEDS: WOUND CARE PREPARATION 178 ML SPR TP SCH (13:00)
--- NOTE | 2018-03-31 13:05 | NUR ---
CM NOTE RECEIVED VM FROM [facility] ARMANI ELDER INQURING ABOUT PATIENT AND REQUESTING FOR CALL BACK. CALLED ARMANI ELDER BACK AND LEFT VM. NO CALL BACK AT THIS TIME.
--- NOTE | 2018-03-31 13:10 | NUR ---
PT VOIDED x1. PERICARE PROVIDED. NO C/O PAIN OR DISCOMFORT. WOUND CARE PROVIDED TO RLE. TIFFANI TX WELL. CALL LIGHT WITHIN REACH.
[2018-03-31] MEDS ORDERED: SPIR50TA PO (14:40)
[2018-03-31] MEDS ORDERED: LACT10SO1 PO (14:41)
--- NOTE | 2018-03-31 15:52 | NUR ---
PT YELLING FOR NURSE. ASKED PT WHAT IF SHE NEEDS ASSISTANCE, STATES SHE JUST WANTS TO KNOW WHEN HER TRANSPORTATION IS COMING. INFORMED PT THAT TRANSPORT IS ON THEIR WAY. NOTIFIED CHARGE NURSE THAT TRANSPORT STILL PENDING. CALL LIGHT WITHIN PT'S REACH.
--- NOTE | 2018-03-31 15:54 | NUR ---
FOLLOWED UP AND SPOKE WITH PHIL, STATED THAT [facility] WILL BE LATE FOR ANOTHER 45 MINS. , PT NOTIFIED, VERBALIZED UNDERSTANDING.
--- NOTE | 2018-03-31 17:08 | NUR ---
FOLLOW UP CALL MADE TO , SPOKE WITH DIONE, STATED THAT [facility] IS 5 MINUTES AWAY. SUSAN NOTIFIED.
--- NOTE | 2018-03-31 17:15 | NUR ---
[facility] ARRIVED TO ENGINEERING PRODUCTION LIAISON PT. REPORT GIVEN TO TRIM MECHANIC.
--- NOTE | 2018-03-31 17:49 | NUR ---
[facility] HERE TO FEEDER CATCHER PT BUT [facility] PATEL IS REFUSING TO TAKE PT TO HER HOUSE FOR THE REASON THAT THERE IS NOBODY TO RECEIVED HER AT HOME. PT IS AAOX4, ABLE TO MAKE HER OWN DECISIONS AND INSISTED TO GO HOME WITH THEM AND IS ABLE TO PAY THE OUT OF POCKET COST FOR [facility] AND THAT SHE PROMISED TO CALL HER FRIENDS AND NEIGHBORS SOON SHE GETS TO HER DESTINATION. [facility] WAS ABLE TO TALK TO CHARLENE FROM [facility] AND EXPLAINED TO HIM THE ISSUE. CHARLENE FROM [facility] STATED THAT PT NEEDS TO SIGN THE WAIVER IN [facility]'S TABLET STATING THAT [facility] AND [facility] ARE NOT RESPONSIBLE FOR WHATEVER HAPPEN TO HER WHEN SHE GETS HOME WITHOUT ANYBODY TO RECEIVE HER. PT AGREED, VERBALIZED UNDERSTANDING OF THE RISKS AND CONSEQUENCES AND SIGNED THE WAIVER IN [facility]'S TABLET.
--- NOTE | 2018-03-31 18:00 | NUR ---
PT LEFT UNIT AT THIS TIME VIA GURNEY WITH 2 MTs. PT DENIES ANY DISCOMFORT. ALL BELONGINGS SENT WITH PT.
[2018-04-01] MEDS ORDERED: GAUZE TP SCH (09:00)
== END 2018-03-31 18:00 | disposition home or self-care (01) | DRG 871 ==
LOC: MED 12:00 → MTU 16:56
PROVIDERS: ADMIT Family Medicine; ATTEND Family Medicine
PROC: 0W9G3ZZ Drainage of Peritoneal Cavity, Percutaneous Approach (ICD-10-PCS; principal; 2018-03-28)
DX: A41.9 Sepsis, unspecified organism (principal); J18.9 Pneumonia, unspecified organism; E43 Unspecified severe protein-calorie malnutrition; G93.41 Metabolic encephalopathy; J90 Pleural effusion, not elsewhere classified; E87.1 Hypo-osmolality and hyponatremia; J98.11 Atelectasis; K76.6 Portal hypertension; L03.116 Cellulitis of left lower limb; L03.115 Cellulitis of right lower limb; E11.42 Type 2 diabetes mellitus with diabetic polyneuropathy; F03.90 Unspecified dementia, unspecified severity, without behavioral disturbance, psychotic disturbance, mood disturbance, and anxiety; E83.42 Hypomagnesemia; K70.31 Alcoholic cirrhosis of liver with ascites; K72.90 Hepatic failure, unspecified without coma; K57.30 Diverticulosis of large intestine without perforation or abscess without bleeding; F32.9 Major depressive disorder, single episode, unspecified; F12.90 Cannabis use, unspecified, uncomplicated; F10.10 Alcohol abuse, uncomplicated; K80.20 Calculus of gallbladder without cholecystitis without obstruction; Z96.652 Presence of left artificial knee joint; I25.10 Atherosclerotic heart disease of native coronary artery without angina pectoris; Z68.25 Body mass index [BMI] 25.0-25.9, adult; Z79.82 Long term (current) use of aspirin; Z79.899 Other long term (current) drug therapy; Z99.3 Dependence on wheelchair
CPT/HCPCS: 36415; 36600; 49083; 70450; 71045; 76700; 80048; 80053; 80076; 80305; 81001; 82009; 82140; 82150; 82550; 82607; 82728; 82746; 82803; 82945; 82948; 83036; 83540; 83605; 83615; 83690; 83735; 83880; 84100; 84157; 84436; 84439; 84443; 84484; 84550; 85025; 85045; 85379; 85610; 85730; 86704; 86706; 86708; 86709; 86803; 87040; 87070; 87075; 87081; 87086; 87205; 87340; 89051; 93925; 93970; 96365; 96372; 97110; 97116; 97530; 97535; 99291; G0482; J0696; J1815; J1940; J1956; J2001; J2060; J2270; J2543; J2550; J3475; J7030; J7060; Q0092; Q9967

== ENCOUNTER 2019-09-03 13:45 | Emergency (ER) | payer MEDICARE, OTHER ==
[~2019-09-03] VITALS: Ht 160 cm; Wt 70.3 kg
[~2019-09-03 13:45] MED LIST: ASPI-1884 PO; FOLI1TAB89 PO; FURO-570 PO; GABA-640 PO; LACT10CA1 PO; LACT10SO1 PO; LEVO750T2 PO; MIRT15TA PO; POTA25TE38 PO; SPIR50TA PO; TRAM50TA1 PO
--- NOTE | 2019-09-03 13:47 | NUR ---
TAKEN TO BED 11 BY EMS
[2019-09-03 13:48] VITALS: BP 120/68
--- NOTE | 2019-09-03 14:00 | NUR ---
DR. ARAUZ AT BEDSIDE.
--- NOTE | 2019-09-03 14:00 | NUR ---
PT REFUSED TO FILL OUT THE ANIMAL BITE REPORT FORM.
--- NOTE | 2019-09-03 14:08 | NUR ---
64 Y/F BIBA FOR DOG BITE TO R ANTERIOR LALA. PT REPORTS IT WAS HER DOG THAT BIT HER LAST NIGHT. SCABBED WOUND TO R LALA, SKIN WARM TO TOUCH. 5/10 PAIN. LAST TDAP WAS MAY 2019. A&O X 4. RR EVEN AND UNLABORED. LUNGS CLEAR. ABD SOFT. SKIN DRY AND WARM TO TOUCH. DENIES DYSURIA. NKDA PMH- DM, L HIP FX
[2019-09-03] MEDS ORDERED: IBUPROFEN 400 MG TAB PO ONE (14:10)
[2019-09-03] MEDS ORDERED: AMOXIL/CLAVULANATE 875/125 MG 1 TAB PO ONE (14:10)
[2019-09-03 14:35] VITALS: BP 120/78
--- NOTE | 2019-09-03 14:35 | NUR ---
Patient discharged with v/s stable. Written and verbal after care instructions given and explained. Patient alert, oriented and verbalized understanding of instructions. Wheel Chair Assisted with by caregiver. All questions addressed prior to discharge. ID band removed. Patient advised to follow up with PMD. Rx of Augmentin given. Patient educated on indication of medication including possible reaction and side effects. Opportunity to ask questions provided and answered.
== END 2019-09-03 14:08 | disposition home or self-care (01) ==
LOC: MED 13:45
DX: S81.851A Open bite, right lower leg, initial encounter (principal); E11.9 Type 2 diabetes mellitus without complications; F03.90 Unspecified dementia, unspecified severity, without behavioral disturbance, psychotic disturbance, mood disturbance, and anxiety; Z79.899 Other long term (current) drug therapy; Z79.82 Long term (current) use of aspirin; W54.0XXA Bitten by dog, initial encounter; Y93.89 Activity, other specified; Y92.89 Other specified places as the place of occurrence of the external cause; Y99.8 Other external cause status
CPT/HCPCS: 82948; 99283